=== PATIENT | male | born 1960 | race Caucasian/White ===

== ENCOUNTER → 2020-01-08 11:54 | Outpatient (BNVA) | payer BC, SELFPAY | PROVIDERS: Family Provider Internal Medicine; Visit Provider Nurse Practitioner | DX: R05 Cough (principal) | CPT/HCPCS: 87635 ==

== ENCOUNTER 2021-05-19 09:59 | Outpatient (CLI) | payer OTHER, SELFPAY ==
--- NOTE | 2021-05-19 10:14 | XRR_ITS ---
PROCEDURE INFORMATION: Exam: XR Cervical Spine Exam date and time: 05/19/2021 10:14 AM Age: 60 years old Clinical indication: Patient HX: Neck pain x 1 week; Weakness left arm; Ddd with radiculopathy; Muscle spasm; Additional info: Weakness of L ar/paresthesia/ddd cspine/oa TECHNIQUE: Imaging protocol: XR of the cervical spine. Views: 2 or 3 views. COMPARISON: No relevant prior studies available. FINDINGS: Bones/joints: No acute fracture. Normal alignment. Mild multilevel uncovertebral hypertrophy and facet arthropathy of the mid and lower cervical spine. Soft tissues: Unremarkable. XR/XR cervical spine 3V* [id number] IMPRESSION: No acute findings. Mild degenerative changes of the mid and lower cervical spine as described in the body of the report. Radiation Dose CTDIVOL = (mGy): DLP = (mGy-cm)
== END 2021-05-19 10:00 | disposition home or self-care (01) ==
PROVIDERS: PCP Electrodiagnostic Medicine; Visit Provider Electrodiagnostic Medicine
DX: R53.1 Weakness (principal); R20.9 Unspecified disturbances of skin sensation; M50.10 Cervical disc disorder with radiculopathy, unspecified cervical region; M62.830 Muscle spasm of back; M19.90 Unspecified osteoarthritis, unspecified site
CPT/HCPCS: 72040

== ENCOUNTER 2021-06-01 12:31 | Outpatient (CLI) | payer OTHER, SELFPAY ==
[2021-06-01 12:41] VITALS: BP 175/87; PULSE 113; RESP 20; TEMP 36.9; O2SAT 94; BMI 34.7
[2021-06-01 13:11] VITALS: BP 153/82; PULSE 89; RESP 20; TEMP 36.8; O2SAT 93
[2021-06-01 14:11] VITALS: BP 153/86; PULSE 94; RESP 20; TEMP 36.8; O2SAT 95
== END 2021-06-01 12:32 | disposition home or self-care (01) ==
LOC: OPS 12:32
PROVIDERS: PCP Electrodiagnostic Medicine; Visit Provider Electrodiagnostic Medicine
DX: U07.1 COVID-19 (principal)
CPT/HCPCS: 96365

== ENCOUNTER 2021-06-22 07:53 | Outpatient (CLI) | payer OTHER, SELFPAY ==
--- NOTE | 2021-06-22 08:05 | MR_ITS ---
WS: [id number] MRI CERVICAL SPINE NONCONTRAST HISTORY: WEAKNESS OF LEFT ARM/PARESTHESIA COMPARISON: 07/07/2012 Technique: Multiplanar, multisequence noncontrast imaging of the cervical spine. Normal cervical alignment. Less than 2 mm retrolisthesis of C3 and C5. No marrow edema or fracture. Signal within the cervical cord is normal. Visualized posterior fossa is unremarkable. Craniocervical junction, C1 and C2 relationship, odontoid process and soft tissues are normal. C2-C3: Mild osteophytic ridging. No stenosis. C3-C4: Mild osteophytic ridging. Moderate-sized disc osteophyte complex extending into the proximal L EFT foramen with displacement upon the exiting nerve roots. Moderate LEFT foraminal stenosis. Stenosi s and disc osteophyte complex have slightly increased since the prior study. C4-C5: Diffuse osteophytic ridging and disc bulging. Moderate size proximal RIGHT foraminal disc oste ophyte complex. Smaller osteophyte in the LEFT foramen. Moderate RIGHT and mild LEFT foraminal stenos is. Bilateral facet joint arthritis. C5-C6: Moderate annular disc bulging with osteophytic ridging resulting in mild central stenosis. Tyson ateral disc osteophyte complexes within the foramina. Slightly greater on the LEFT than the RIGHT. Mo derate to severe LEFT and moderate RIGHT foraminal stenosis. Progression of facet joint arthritis and stenoses since the prior study. C6-C7: Mild osteophytic ridging and annular disc bulging. Mild central and bilateral foraminal stenos is. Mild bilateral facet joint arthritis. C7-T1: Very minimal osteophytic ridging without significant stenosis. Paraspinal soft tissue are normal. MR/MR cervical spin wo con* [id number] IMPRESSION: 1. Overall progression of facet joint arthritis and spondylitic changes since 07/07/2012. 2. Moderate to severe LEFT and moderate RIGHT foraminal stenosis at C5-6 with mild central stenosis. Bilateral disc osteophyte complexes contributing to the stenosis. 3. Moderate RIGHT and mild LEFT foraminal stenosis at C4-5. 4. Moderate LEFT foraminal stenosis at C3-4 due to disc osteophyte complex in the proximal LEFT foramen. 5. Mild central and bilateral foraminal stenosis at C6-7.
== END 2021-06-22 07:54 | disposition home or self-care (01) ==
PROVIDERS: PCP Electrodiagnostic Medicine; Visit Provider Electrodiagnostic Medicine
DX: R20.9 Unspecified disturbances of skin sensation (principal); M50.10 Cervical disc disorder with radiculopathy, unspecified cervical region; R20.2 Paresthesia of skin; M62.81 Muscle weakness (generalized); M48.02 Spinal stenosis, cervical region; M25.78 Osteophyte, vertebrae
CPT/HCPCS: 72141

== ENCOUNTER 2021-09-15 11:47 | Outpatient (CLI) | payer OTHER, SELFPAY ==
--- NOTE | 2021-09-15 12:04 | CT_ITS ---
WS: [id number] CT ABDOMEN PELVIS TECHNIQUE: Contrast-enhanced CT of the abdomen and pelvis with coronal and sagittal reformatted image s. CLINICAL INFORMATION: LUQ ABD PAIN/TRAUMA LEFT UPPER QUAD COMPARISON: None. DLP: 1233.[address] scans at [facility] use at least one of these dose optimization techniques: automated e xposure control; mA and/or kV adjustment per patient size (includes targeted exams where dose is matc hed to clinical indication); or iterative reconstruction. FINDINGS: Mild diffuse fatty infiltration of the liver. Mild hepatomegaly. Normal gallbladder. Normal spleen. S mall esophageal hiatal hernia. Normal portal vein and splenic vein. Mild fatty atrophy of the pancrea s. Lung bases are well aerated. Noncalcified nodules in the lung bases measuring 4 mm in the RIGHT lo wer lobe laterally and 4 mm nodule LEFT lower lobe. Minimally displaced LEFT rib fracture 10th rib laterally adjacent to the spleen. No visualized spleni c laceration. No perisplenic fluid. Fatty atrophy of the pancreas. Adrenal glands are normal. Normal renal parenchymal enhancement. No hy dronephrosis. Normal caliber abdominal aorta. No para-aortic lymphadenopathy. Sigmoid diverticulosis. No evidence of acute diverticulitis. Tiny fat-containing LEFT inguinal hernia. L5 is sacralized for the purposes of this dictation. Disc o steophyte complex L2-L3 L3-L4 with mild central canal stenosis. CT/CT abdomen pelvis w con* [id number] IMPRESSION: 1. Minimally displaced LEFT 10th rib fracture laterally adjacent to the spleen . No visualized splenic laceration or perisplenic fluid. 2. Mild hepatomegaly with diffuse fatty infiltration of the liver. 3. Lung bases are well aerated. Small subcentimeter pulmonary nodules describe d above. Recommend chest CT follow-up. 4. No hydronephrosis in either kidney. 5. Normal caliber abdominal aorta. 6. Sigmoid diverticulosis.
== END 2021-09-15 11:48 | disposition home or self-care (01) ==
PROVIDERS: PCP Electrodiagnostic Medicine; Visit Provider Electrodiagnostic Medicine
DX: S22.32XA Fracture of one rib, left side, initial encounter for closed fracture (principal); X58.XXXA Exposure to other specified factors, initial encounter; R16.0 Hepatomegaly, not elsewhere classified; K76.0 Fatty (change of) liver, not elsewhere classified; K57.30 Diverticulosis of large intestine without perforation or abscess without bleeding
CPT/HCPCS: 74177; Q9967

== ENCOUNTER 2022-01-20 09:28 | Outpatient (CLI) | payer OTHER, SELFPAY ==
[2022-01-20 10:00] VITALS: BMI 36.9
--- NOTE | 2022-01-20 10:00 | ECG_ITS ---
[facility] Test Date: 2022-01-20 Pat Name: Henry Carrion Department: Room: Gender: Male [employer] Machine Set Up Operator: Cristine Ruth : 1960 Requested By: Milind Hinojosa Order Number: [id number] Rasheed MD: Domingo Salazar M.D. Interpretive Statements NAME OF STUDY: TREADMILL STRESS TEST Exertional shortness of breath, denied chest pain during test INDICATION: [Dyspnea on Exertion, ] EXERCISE DATA: The patient was exercised by Raghu protocol. Baseline heart rate was 115 beats per minute. Baseline blood pressure was 150/88 millimeters of mercury. Target heart rate was 136 beats per minute. Maximum heart rate achieved was 160, which was 117% of the target heart rate. Maximum blood pressure was 205/82 millimeters of mercury. Total exercise time was 6 minutes 57 seconds. Maximum METs achieved was 10.2. The reason for ending the test was completion of protocol. The patient complained of cough shortness of breath during the stress test, which then resolved at the end of the test. ELECTROCARDIOGRAM: BASELINE: Showed sinus tachycardia, normal axis, no significant ST-T changes at the baseline noted. [] EXERCISE: At the peak exercise level, [] No significant ST-T changes suggestive of ischemia noted. [] RECOVERY: During the recovery period, heart rate dropped appropriately. No significant ST-T changes in the recovery suggestive of ischemia noted. [] CONCLUSION: 1. Exercise capacity good 2. Heart rate response was appropriate 3. Blood pressure response was appropriate 4. Symptoms not suggestive of ischemia. 5. Electrocardiogram stress test was not suggestive of ischemia. Electronically Signed On 01-30-2022 12:53:15 CDT by Domingo Salazar M.D. [id number]
[2022-01-20 10:43] VITALS: BP 134/81; PULSE 119
== END 2022-01-20 09:29 | disposition home or self-care (01) ==
LOC: CDL 09:34
PROVIDERS: PCP Electrodiagnostic Medicine; Visit Provider Electrodiagnostic Medicine
DX: R06.00 Dyspnea, unspecified (principal)
CPT/HCPCS: 93017

== ENCOUNTER → 2022-04-08 07:54 | Outpatient (BNVA) | payer OTHER, SELFPAY | PROVIDERS: PCP Electrodiagnostic Medicine; Visit Provider Student in an Organized Health Care Education/Training Program | DX: R20.0 Anesthesia of skin (principal); R20.2 Paresthesia of skin; R22.30 Localized swelling, mass and lump, unspecified upper limb | CPT/HCPCS: 73060 ==

== ENCOUNTER 2022-04-30 10:17 | Outpatient (CLI) | payer OTHER, SELFPAY ==
--- NOTE | 2022-04-30 10:30 | MR_ITS ---
WS: [id number] MRI LEFT HUMERUS without CONTRAST. COMPARISON: Radiographs 04/08/2022 Multiplanar, multisequence imaging is performed without contrast. Imaging of the LEFT humerus was performed on 04/30/2022 and also 05/03/2022 to optimize the imaging. No soft tissue masses are identified. Marker is placed along the distal humerus in area of palpable a bnormality. There is no underlying mass identified. Normal appearance of the adipose tissue and the m uscles. No marrow signal abnormality or edema within the bone. No destructive soft tissue process. No fluid collections. MR/MR humerus LT wo con* [id number] IMPRESSION: Negative MRI LEFT humerus. No soft tissue mass or osseous abnormality.
== END 2022-04-30 10:18 | disposition home or self-care (01) ==
LOC: RAD 10:18
PROVIDERS: PCP Electrodiagnostic Medicine; Visit Provider Student in an Organized Health Care Education/Training Program
DX: R22.32 Localized swelling, mass and lump, left upper limb (principal)
CPT/HCPCS: 73218

== ENCOUNTER 2022-05-19 20:00 | Outpatient (CLI) | payer OTHER, SELFPAY | END 2022-05-19 20:01 | disposition home or self-care (01) | LOC: SLEEP 05-20 05:12 | PROVIDERS: PCP Electrodiagnostic Medicine; Visit Provider Electrodiagnostic Medicine | DX: G47.10 Hypersomnia, unspecified (principal); R53.83 Other fatigue; G47.33 Obstructive sleep apnea (adult) (pediatric) | CPT/HCPCS: 95810 ==

== ENCOUNTER 2022-07-21 20:00 | Outpatient (CLI) | payer OTHER, SELFPAY | END 2022-07-21 20:01 | disposition home or self-care (01) | LOC: SLEEP 07-22 04:36 | PROVIDERS: PCP Electrodiagnostic Medicine; Visit Provider Electrodiagnostic Medicine | DX: G47.33 Obstructive sleep apnea (adult) (pediatric) (principal) | CPT/HCPCS: 95811 ==

== ENCOUNTER 2023-02-18 09:41 | Oncology outpatient (recurring) (ONCR) | payer OTHER, SELFPAY ==
[2023-02-16 17:06] VITALS: BP 141/78; PULSE 88; RESP 18; TEMP 36.6; O2SAT 98
[2023-02-16 17:13] LABS: Basophils % 0.5 %; Eosinophils # 0.2 10^3/uL (0.0-0.8); Eosinophils % 2.6 %; Hematocrit 40.5 % (42.0-52.0); Hemoglobin 14.1 g/dL (11.7-16.6); Lymphocytes # 1.9 10^3/uL (0.8-4.8); Lymphocytes % 28.2 %; Mean Corpuscular HGB Conc 34.8 g/dL (30.0-36.0); Mean Corpuscular Hemoglobin 31.9 pg (28.0-34.0); Mean Corpuscular Volume 91.6 fl (80-94); Mean Platelet Volume 9.1 fL (7.4-10.4); Monocytes # 0.5 10^3/uL (0.2-0.9); Monocytes % 8.2 %; Neutrophils # 3.97 10^3/uL (1.8-7.7); Neutrophils % 60.2 %; Nucleated Red Blood Cells % 0 %; Platelet Count 263 10^3/cmm (130-400); Red Blood Count 4.42 10^6/uL (4.1-5.3); Red Cell Distribution Width 12.4 % (12.1-15.1); White Blood Count 6.6 10^3/uL (4.0-10.0)
[2023-02-16 17:44] LABS: Alanine Aminotransferase 26 U/L (0-41); Albumin Level 3.9 g/dL (3.5-5.2); Alkaline Phosphatase 90 U/L (40-130); Aspartate Amino Transferase 22 U/L (0-40); Blood Urea Nitrogen 25 mg/dL (8-23); Calcium 9.1 mg/dL (8.5-10.5); Carbon Dioxide 23 mmol/L (22-29); Chloride 103 mmol/L (98-107); Globulin 2.5 g/dL (1.3-4.6); Glomerular Filtration Rate 86.1 mL/min (90-130); Glucose 111 mg/dL (65-115); Osmolality Calculated 293 mOsm/kg (285-295); Sodium 139 mmol/L (136-145); Total Bilirubin 0.3 mg/dL (0.15-1.2); Total Protein 6.4 g/dL (6.6-8.7)
[2023-02-16 18:02] LABS: Anion Gap 16.6 (5-19); Lactate Dehydrogenase 276 U/L (135-225); Potassium 3.6 mmol/L (3.5-5.1)
[2023-02-18 10:15] LABS: PROTEIN, TOTAL 6.6 g/dL (6.1-8.1)
[2023-02-18 13:23] LABS: ALPHA 1 GLOBULIN 0.3 g/dL (0.2-0.3); ALPHA 2 GLOBULIN 0.6 g/dL (0.5-0.9); BETA 1 GLOBULIN 0.4 g/dL (0.4-0.6); BETA 2 GLOBULIN 0.4 g/dL (0.2-0.5); GAMMA GLOBULIN 0.8 g/dL (0.8-1.7)
[2023-02-18 13:29] LABS: KAPPA LIGHT CHAIN, FREE, SERUM 24.5 mg/L (3.3-19.4); KAPPA/LAMBDA LIGHT CHAINS FREE 1.98 (0.26-1.65); LAMBDA LIGHT CHAIN, FREE, SERU 12.4 mg/L (5.7-26.3)
[2023-02-23 14:44] LABS: Kappa Free Light Chains Urine 60.19 mg/L (<=32.90)
== END 2023-03-10 23:59 | disposition home or self-care (01) ==
PROVIDERS: PCP Electrodiagnostic Medicine; Visit Provider Internal Medicine Medical Oncology
DX: R76.8 Other specified abnormal immunological findings in serum (principal)
CPT/HCPCS: 36415; 80053; 83615; 83883; 84155; 84156; 84165; 85025; 86334; 86335; 99205

== ENCOUNTER 2023-03-16 13:35 | Oncology outpatient (recurring) (ONCR) | payer OTHER, SELFPAY ==
[2023-03-16 15:17] LABS: Immunoglobulin IGA 258 mg/dL (70-400); Immunoglobulin IGG 722 mg/dL (700-1600); Immunoglobulin IGM 124 mg/dL (40-230)
== END 2023-04-09 23:59 | disposition home or self-care (01) ==
PROVIDERS: Nurse Practitioner Family; PCP Electrodiagnostic Medicine; Visit Provider Internal Medicine Medical Oncology
DX: R76.8 Other specified abnormal immunological findings in serum (principal); Z79.899 Other long term (current) drug therapy
CPT/HCPCS: 36415; 82784; 99214

== ENCOUNTER → 2023-07-12 14:41 | Outpatient (BNVA) | payer OTHER, SELFPAY | PROVIDERS: PCP Electrodiagnostic Medicine; Visit Provider Dermatology | DX: L72.0 Epidermal cyst (principal); D22.5 Melanocytic nevi of trunk | CPT/HCPCS: 10060; 99213 ==

== ENCOUNTER → 2023-07-27 09:40 | Outpatient (BNVA) | payer OTHER, SELFPAY | PROVIDERS: PCP Electrodiagnostic Medicine; Visit Provider Dermatology | DX: D48.5 Neoplasm of uncertain behavior of skin (principal) | CPT/HCPCS: 11402; 12032 ==

== ENCOUNTER → 2023-08-30 06:58 | Outpatient (BNVA) | payer OTHER, SELFPAY | PROVIDERS: PCP Electrodiagnostic Medicine; Visit Provider Psychiatry & Neurology Neurology | DX: R53.1 Weakness (principal); R53.83 Other fatigue; R20.0 Anesthesia of skin; R20.2 Paresthesia of skin; R74.8 Abnormal levels of other serum enzymes; M62.50 Muscle wasting and atrophy, not elsewhere classified, unspecified site; M79.10 Myalgia, unspecified site | CPT/HCPCS: 36415; 82085; 82306; 82550; 82607; 82746; 83090; 83735; 83921; 99203 ==

== ENCOUNTER → 2023-10-06 12:45 | Outpatient (BNVA) | payer OTHER, SELFPAY | PROVIDERS: PCP Electrodiagnostic Medicine; Visit Provider Psychiatry & Neurology Neurology | DX: G62.89 Other specified polyneuropathies (principal); R53.1 Weakness; M79.10 Myalgia, unspecified site; R20.0 Anesthesia of skin; R20.2 Paresthesia of skin | CPT/HCPCS: 95885; 95886; 95913 ==

== ENCOUNTER → 2024-02-13 14:33 | Outpatient (BNVA) | payer OTHER, SELFPAY | PROVIDERS: PCP Electrodiagnostic Medicine; Visit Provider Psychiatry & Neurology Neurology | DX: G62.9 Polyneuropathy, unspecified (principal); R53.1 Weakness; M79.10 Myalgia, unspecified site; R74.8 Abnormal levels of other serum enzymes; R53.83 Other fatigue; R20.0 Anesthesia of skin; R20.2 Paresthesia of skin | CPT/HCPCS: 36415 ==

== ENCOUNTER → 2024-02-20 15:40 | Outpatient (BNVA) | payer OTHER, SELFPAY | PROVIDERS: PCP Electrodiagnostic Medicine; Visit Provider Nurse Practitioner Family | DX: R31.9 Hematuria, unspecified (principal); B34.9 Viral infection, unspecified | CPT/HCPCS: 81003; 87426; 87635; 87804 ==